=== PATIENT | female | born 1985 | race Caucasian/White ===

== ENCOUNTER 2017-09-18 20:25 | Emergency (ER) | payer MEDICAID ==
[~2017-09-18] VITALS: Ht 162.6 cm; Wt 56.2 kg
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
--- NOTE | 2017-09-18 21:01 | NUR ---
Dr Muir at bedside to evaluate patient and for pelvic exam.
[2017-09-18] MEDS ORDERED: ONDANSETRON HCL/PF 4 MG/2 ML VIAL ONE (21:10)
[2017-09-18] MEDS ORDERED: HYDROMORPHONE INJ 2 MG/ML DISP.SYRIN ONE (21:10)
--- NOTE | 2017-09-18 21:15 | NUR ---
Dilaudid 0.5mg and zofran 4mg given ivp to the left hand g20 per Dr Randle's verbal orders for pain management during the procedure, dilatation and curettage. Will closely monitor patient.
[2017-09-18 21:22] LABS: BASOPHILS # (AUTO) 0.1 /CMM (0.0-0.2); BASOPHILS % (AUTO) 0.5 % (0.0-2.0); EOSINOPHILS # (AUTO) 0.1 /CMM (0.0-0.7); EOSINOPHILS % (AUTO) 0.7 % (0.0-6.0); HEMATOCRIT 35 % (33-45); HEMOGLOBIN 11.8 g/dL (11.5-14.8); LYMPHOCYTES # (AUTO) 1.9 /CMM (0.8-4.8); LYMPHOCYTES % (AUTO) 12.8 % (20.0-44.0); MEAN CORPUSCULAR HEMOGLOBIN 31 PG (26.0-33.0); MEAN CORPUSCULAR HGB CONC 34 g/dl (31.0-36.0); MEAN CORPUSCULAR VOLUME 89 fL (82-100); MONOCYTES # (AUTO) 0.6 /CMM (0.1-1.30); MONOCYTES % (AUTO) 3.8 % (2.0-12.0); NEUTROPHILS # (AUTO) 12.2 /CMM (1.8-8.9); NEUTROPHILS % (AUTO) 82.2 % (43.0-81.0); PLATELET COUNT (AUTO) 252 /CMM (150-450); RDW COEFFICIENT OF VARIATION 12.3 (11.5-15.0); RED BLOOD CELL COUNT(AUTO) 3.88 MIL/uL (4.0-5.2); WHITE BLOOD COUNT (AUTO) 14.9 K/uL (4.3-11.0)
[2017-09-18] MEDS ORDERED: IV NS 0.9% 1,000 ML BAG IV ONE (21:30)
--- NOTE | 2017-09-18 21:30 | NUR ---
Dr Fonseca at bedside for emergency D & C.
[2017-09-18 21:32] LABS: CALCIUM, SERUM 8.8 mg/dL (8.5-10.1); CREATININE 0.6 mg/dL (0.6-1.3); POTASSIUM 3.4 mmol/L (3.5-5.1)
[2017-09-18 21:36] LABS: INR 0.95 (0.87-1.13); PROTHROMBIN TIME 9.9 SECS (9.5-12.7)
[2017-09-18 21:38] LABS: ALBUMIN 3.7 g/dL (3.4-5.0); BILIRUBIN,TOTAL 0.2 mg/dL (0.2-1.0); TOTAL PROTEIN, SERUM 7.2 g/dL (6.4-8.2)
[2017-09-18] MEDS ORDERED: CEFAZOLIN 2 GM ONE (21:49)
[2017-09-18] MEDS ORDERED: OXYTOCIN 10 UNIT/ML ML ONE (21:49)
[2017-09-18] MEDS ORDERED: KETOROLAC TROMETHAMINE INJ 30 MG/ML VIAL ONE (21:50)
[2017-09-18] MEDS ORDERED: CEFAZOLIN 2 GM in IV D5W 100 ML IV ONE (22:00)
[2017-09-18] MEDS ORDERED: KETOROLAC TROMETHAMINE INJ 30 MG/ML VIAL IV ONE (22:00)
[2017-09-18] MEDS ORDERED: OXYTOCIN 10 UNIT/ML ML IV ONE (22:00)
--- NOTE | 2017-09-19 | NUR ---
IV removed. Catheter intact and site benign. Pressure and 4x4 applied to site. No bleeding noted. Patient discharged to home in stable condition. Written and verbal after care instructions given. Patient verbalizes understanding of instruction. Patient is ambulatory with steady gait, accompanied by , instructed not to drive. No further complaints. Nad on dc.
[2017-09-19 00:01] VITALS: BP 97/44
== END 2017-09-19 00:02 | disposition home or self-care (01) ==
LOC: ER 20:30 → EDBD 20:30 → ER 09-19 00:02
DX: O03.4 Incomplete spontaneous abortion without complication (principal); R55 Syncope and collapse
CPT/HCPCS: 36415; 76856-TC; 80048-TC; 80076-TC; 85025-TC; 85730-TC; 88305-TC; A4606; A6403; J0690; J1170; J1885; J2405; J2590; J7030; J7040; J7060; Z7610